=== PATIENT | male | born 1965 | race Caucasian/White ===

== ENCOUNTER 2024-01-17 13:10 | Emergency (ER) | payer SELFPAY ==
[2024-01-17] MEDS: Tetracaine HCl/PF 0.5% 4 ML Bottle EYEBOTH STA (13:42)
[2024-01-17] MEDS: Diphtheria,Pertussis(Acell),Tetanus Vaccine 0.5 ML Syringe IM ONE (13:43)
== END 2024-01-17 14:19 | disposition home or self-care (01) ==
LOC: MW.ED 13:10
DX: S05.02XA Injury of conjunctiva and corneal abrasion without foreign body, left eye, initial encounter (principal); Z23 Encounter for immunization; Z75.8 Other problems related to medical facilities and other health care; X58.XXXA Exposure to other specified factors, initial encounter
CPT/HCPCS: 90471; 90715; 99283; 99283-25; J3490